=== PATIENT | male | born 1985 | race Caucasian/White ===

== ENCOUNTER 2017-06-14 10:33 | Emergency (ER) | payer SELFPAY ==
[2017-06-14 11:00] VITALS: BP 123/88; PULSE 80; RESP 18; TEMP 98.1; O2SAT 100
[2017-06-14] MEDS ORDERED: levETIRAcetam 1,000 MG in Sodium Chloride 0.9% 100 ML IVPB ONE (11:23)
--- NOTE | 2017-06-14 11:27 | ED PDOC ---
HPI: Chest Pain Chief Complaint (Nursing): Chest Pain History Per: Patient Onset/Duration Of Symptoms: Days (2) Current Symptoms Are (Timing): Still Present Severity: Mild Pain Scale Rating Of: 2 Quality: Squeezing Associated Symptoms: Dyspnea Exacerbating Factors: Deep Breathing Additional Complaint(s): Squeezing type chest pain radiating to left shoulder assoc with SOB x 2 days. H/ o seizure disorder, ran out of Keppra 3 days ago. Feels "out of it" similar to aura prior to seizures. Last seized 6 months ago. Denies drugs. Past Medical History Vital Signs: Last Vital Signs Temp 98.1 F 06/14/17 10:57 Pulse 80 06/14/17 10:57 Resp 18 06/14/17 10:57 BP 123/88 06/14/17 10:57 Pulse Ox 100 06/14/17 11:27 - Medical History PMH: Seizures - Family History Family History: States: Unknown Family Hx - Home Medications Home Medications: Ambulatory Orders Medication Instructions Recorded Levetiracetam [Keppra] 750 mg PO BID 06/14/17 Levetiracetam [Keppra] 750 mg PO BID #60 tab 06/14/17 Non-Formulary 1 ea .ROUTE Q6 #1 ea 06/14/17 - Allergies Allergies/Adverse Reactions: Allergies Allergy/AdvReac Type Severity Reaction Status Date / Time nicardipine [From Cardene] Allergy VOMITING Verified 06/14/17 10:57 Penicillins Allergy RASH Verified 06/14/17 10:56 Review of Systems ROS Statement: Except As Marked, All Systems Reviewed And Found Negative Cardiovascular: Positive for: Chest Pain Respiratory: Positive for: Shortness of Breath Physical Exam - Reviewed Nursing Documentation Reviewed: Yes Vital Signs Reviewed: Yes - Physical Exam Appears: Positive for: Non-toxic, No Acute Distress Head Exam: Positive for: ATRAUMATIC, NORMAL INSPECTION, NORMOCEPHALIC Skin: Positive for: Normal Color, Warm, DRY Eye Exam: Positive for: EOMI, Normal appearance, PERRL ENT: Positive for: Normal ENT Inspection Neck: Positive for: Normal, Painless ROM Cardiovascular/Chest: Positive for: Regular Rate, Rhythm Respiratory: Positive for: CNT, Normal Breath Sounds Gastrointestinal/Abdominal: Positive for: Normal Exam, Bowel Sounds, Soft Back: Positive for: Normal Inspection Extremity: Positive for: Normal ROM Neurologic/Psych: Positive for: Alert, Oriented - Laboratory Results Result Diagrams: 06/14/17 11:30 06/14/17 11:30 - ECG O2 Sat by Pulse Oximetry: 100 Medical Decision Making Medical Decision Makin hr obs recommended for chest pain. Pt states he feels better and wishes to f/ u as outpt. Aware of risks including GA and arrhythmia and . Advised immediate return to ED if chest pain recurrs or if he experiences seizure. Disposition - Clinical Impression Clinical Impression: Chest pain, Seizure disorder - Patient ED Disposition Is Patient to be Admitted: No Counseled Patient/Family Regarding: Studies Performed, Diagnosis, Need For Followup, Rx Given - Disposition Referrals: Spencer Goldstein MD [Staff Provider] - Disposition: Routine/Home Disposition Time: 13:47 Condition: FAIR Prescriptions: Levetiracetam [Keppra] 750 mg PO BID #60 tab Non-Formulary 1 ea .ROUTE Q6 #1 ea Instructions: Chest Pain (ED), Recurrent Seizures in Adults (ED) Forms: [employer] (Japanese)
[2017-06-14 11:39] LABS: BASO # 0.1 K/uL (0.0-0.2); BASO % 0.8 % (0.0-2.0); EOS # 0.2 K/uL (0.0-0.7); EOS % 3.2 % (0.0-4.0); HEMATOCRIT 46.9 % (35.0-51.0); LYMPH # 1.4 K/uL (1.0-4.3); LYMPH % 19.6 % (20.0-40.0); MEAN CELL VOLUME 91.7 fl (80.0-94.0); MEAN CORPUSCULAR HEMOGLOBIN 31.1 pg (27.0-31.0); MEAN CORPUSCULAR HGB CONC 33.9 g/dL (33.0-37.0); MEAN PLATELET VOLUME 9.2 fl (7.2-11.7); MONO # 0.6 K/uL (0.0-0.8); MONO % 8.2 % (0.0-10.0); NEUT # 4.7 K/uL (1.8-7.0); NEUT % 68.2 % (50.0-75.0); NRBC % 0.1 % (0.0-0.0); RED CELL DISTRIBUTION WIDTH 12.9 % (11.5-14.5); WHITE BLOOD COUNT 6.9 K/uL (4.8-10.8)
[2017-06-14 12:20] LABS: ALB/GLOB RATIO 1.5 (1.0-2.1); ALCOHOL SERUM < 10 mg/dl (0-10); ALKALINE PHOSPHATASE 60 U/L (38-126); ALT/SGPT 27 U/L (21-72); AST/SGOT 34 U/L (17-59); BLOOD UREA NITROGEN 14 mg/dl (9-20); CALCIUM 9.9 mg/dL (8.4-10.2); CARBON DIOXIDE 25 mmol/L (22-30); CHLORIDE 104 mmol/L (98-107); GFR AFRICAN-AMERICAN > 60; GLUCOSE,RANDOM 96 mg/dL (75-110); POTASSIUM 4.1 MMOL/L (3.6-5.0); SODIUM 141 mmol/l (132-148); TOTAL PROTEIN 7.7 G/DL (6.3-8.2)
--- NOTE | 2017-06-21 10:54 | CARD ---
APPROVED REPORT EKG Measurement Heart [id number] <Conclusion> Normal sinus rhythm Normal ECG
== END 2017-06-14 14:01 | disposition home or self-care (01) ==
LOC: H.ER 10:33
DX: G40.909 Epilepsy, unspecified, not intractable, without status epilepticus (principal); Z88.0 Allergy status to penicillin; R07.9 Chest pain, unspecified
CPT/HCPCS: 71020; 80053; 80299; 84484; 85025; 96365; 99282; G0480; J1953